=== PATIENT | female | born 2000 | race Two or more races ===

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

== ENCOUNTER 2018-07-08 17:24 | Emergency (ER) | payer MEDICAID ==
[2018-07-08 17:36] VITALS: BP 118/75
--- NOTE | 2018-07-08 17:40 | EDM.PDOC ---
<Saritha Cross - Last Filed: 07/08/18 19:32> ED HPI GENERAL MEDICAL PROBLEM - General Chief Complaint: Asthma Stated Complaint: SOB - ASTHMA Time Seen by Provider: 07/08/18 17:33 - History of Present Illness INITIAL COMMENTS - FREE TEXT/NARRATIVE: 18 y/o female presents to ER with cc SOB. Patient reports she is asthmatic and became SOB yesterday. She reports she normally uses a rescue inhaler but is out. She does not have a PCP. She denies fever, chills or productive cough. Onset Date: 07/07/18 Onset Time: 12:00 Duration: Getting Worse Severity: Mild Improves with: Reports: None Worsens with: Reports: None Associated Symptoms: Reports: Other (sob). Denies: Cough - Related Data Allergies Allergy/AdvReac Type Severity Reaction Status Date / Time No Known Allergies Allergy Verified 03/12/17 01:37 Home Meds: Home Meds Albuterol [Proventil Neb Soln] 2.5 mg .XX Q3HR PRN #60 neb 07/08/18 [Rx] Albuterol [Ventolin HFA] 2 puff INH Q3H PRN #1 mdi 07/08/18 [Rx] Albuterol/Ipratropium [DuoNeb 3.0-0.5 MG/3 ML] 3 ml .XX QID #60 neb 07/08/18 [Rx ] predniSONE [Deltasone] 20 mg PO ASDIRECTED #18 tablet 07/08/18 [Rx] ED ROS GENERAL - Review of Systems Review Of Systems: See Below Constitutional: Denies: Fever, Chills HEENT: Reports: No Symptoms Respiratory: Reports: Shortness of Breath, Wheezing Cardiovascular: Reports: No Symptoms Endocrine: Reports: No Symptoms GI/Abdominal: Reports: No Symptoms : Reports: No Symptoms Musculoskeletal: Reports: No Symptoms Skin: Reports: No Symptoms Neurological: Reports: No Symptoms Psychiatric: Reports: No Symptoms Hematologic/Lymphatic: Reports: No Symptoms Immunologic: Reports: No Symptoms ED EXAM, GENERAL - Physical Exam Exam: See Below Exam Limited By: No Limitations General Appearance: Alert, WD/WN, No Apparent Distress Neck: Normal Inspection, Supple, Non-Tender, Full Range of Motion Respiratory/Chest: Wheezing Cardiovascular: Normal Peripheral Pulses, Regular Rate, Rhythm, No Edema, No Gallop, No JVD, No Murmur, No Rub Extremities: Normal Inspection, Normal Range of Motion, Non-Tender, No Pedal Edema, Normal Capillary Refill Neurological: Alert, Oriented, Normal Cognition, Normal Gait, Normal Reflexes, No Motor/Sensory Deficits Psychiatric: Normal Affect, Normal Mood Skin Exam: Warm, Dry, Intact, Normal Color, No Rash Lymphatic: No Adenopathy Course - Vital Signs Last Recorded V/S: Last Vital Signs Temp 36.2 C 07/08/18 17:34 Pulse 109 H 07/08/18 17:34 Resp 28 H 07/08/18 17:34 BP 118/75 07/08/18 17:34 Pulse Ox 97 07/08/18 19:39 - Orders/Labs/Meds Orders: Active Orders 24 hr Category Date Time Status RT Aerosol Therapy [RC] ASDIRECTED Care 07/08/18 17:41 Active RT Aerosol Therapy [RC] ASDIRECTED Care 07/08/18 19:36 Active Albuterol/Ipratropium [DuoNeb 3.0-0.5 MG/3 ML] Med 07/08/18 17:40 Active 3 ml NEB BIDRT PRN Medication Orders Albuterol/Ipratropium (Duoneb 3.0-0.5 Mg/3 Ml) 3 ml NEB BIDRT PRN PRN Reason: sob Last Admin: 07/08/18 19:37 Dose: 3 ml Admin: 07/08/18 19:02 Dose: 3 ml Admin: 07/08/18 17:45 Dose: 3 ml Meds: Medications Generic Name Dose Route Start Last Admin Trade Name Freq PRN Reason Stop Dose Admin Albuterol/Ipratropium 3 ml 07/08/18 17:40 07/08/18 19:37 Duoneb 3.0-0.5 Mg/3 Ml NEB 3 ml BIDRT PRN Administration sob Discontinued Medications Generic Name Dose Route Start Last Admin Trade Name Freq PRN Reason Stop Dose Admin Albuterol/Ipratropium 3 ml 07/08/18 19:36 07/08/18 19:38 Duoneb 3.0-0.5 Mg/3 Ml NEB 07/08/18 19:37 Not Given ONETIME ONE Dexamethasone 4 mg 07/08/18 18:28 07/08/18 19:04 Dexamethasone IM 07/08/18 18:29 4 mg ONETIME ONE Administration - Re-Assessments/Exams Free Text/Narrative Re-Assessment/Exam: 07/08/18 19:32 She continues to wheeze despite 3 nebulizer treatments and a Decadron injection. I will discharge home with a nebulizer and nebulizer treatment. I instructed her to follow up with her PCP. Instructed to return to the ER for any new or acute worsening symptoms. Patient verbalized understanding and is comfortable with plan for discharge. She is stable at time of discharge. Departure - Departure Disposition: Home, Self-Care 01 Condition: Good Clinical Impression: Exacerbation of allergic asthma - Discharge Information *PRESCRIPTION DRUG MONITORING PROGRAM REVIEWED*: Not Applicable *COPY OF PRESCRIPTION DRUG MONITORING REPORT IN PATIENT ABRAHAN: Not Applicable Prescriptions: Albuterol [Proventil Neb Soln] 2.5 mg .XX Q3HR PRN #60 neb PRN Reason: relief of asthma Albuterol [Ventolin HFA] 2 puff INH Q3H PRN #1 mdi PRN Reason: asthma Albuterol/Ipratropium [DuoNeb 3.0-0.5 MG/3 ML] 3 ml .XX QID #60 neb predniSONE [Deltasone] 20 mg PO ASDIRECTED #18 tablet Instructions: Asthma, Adult, Form - Asthma Action Plan, Adult Referrals: PCP,None [Primary Care Provider] - Forms: ED Department Discharge Additional Instructions: Evaluation the emergency room today in regards to acute exacerbation of her asthma over the last 3-4 days. Asthma so bad that she could not sleep all night last night. Likely being exacerbated by recent adoption of a kitten into your home. Cat dander is very famous for exacerbating asthma. You were treated with DuoNeb 3 while in the emergency department to open up your lung tubes to help you breathe. He also received initial dose of steroid dexamethasone 4 mg intramuscularly. Treatment at home is to be DuoNeb medication 4 times daily usually about every 6 hours as needed for relief of wheezing and/or shortness of breath. Medication is to be used with a nebulizer machine which we obtained from [email or web address] for you. You can use albuterol neb you'll in between the DuoNeb nebulizer if needed for shortness of breath and/or wheezing. This is considered a rescue medication when you find you're really short of breath. Secondly you will be placed on his course of prednisone 20 mg twice daily with breakfast and supper for 6 days and then 1 tablet in the morning only for another 6 days to bring her asthma under control. You need to follow-up with her personal care physician in 10 days' time to make sure your asthma is well controlled. If not she may well needed an inhaled steroid to bring her asthma under control long- term. You can continue to use albuterol hand-held nebulizer that you can take with you of course when you're away from home in case her asthma acts up. - My Orders Last 24 Hours: My Active Orders 07/08/18 19:36 RT Aerosol Therapy [RC] ASDIRECTED - Assessment/Plan Last 24 Hours: My Active Orders 07/08/18 19:36 RT Aerosol Therapy [RC] ASDIRECTED <Eladio Chester - Last Filed: 07/08/18 21:31> ED HPI GENERAL MEDICAL PROBLEM - General Source of Information: Reports: Patient History Limitations: Reports: No Limitations Chest Pain Score (Numeric/FACES): 8 Past Medical History - Past Health History Medical/Surgical History: Denies Medical/Surgical History Respiratory History: Reports: Asthma - Past Surgical History Musculoskeletal Surgical History: Reports: Other (See Below) Other Musculoskeletal Surgeries/Procedures:: "knee surgery" Social & Family History - Tobacco Use Smoking Status *Q: Never Smoker - Caffeine Use Caffeine Use: Reports: Other Other Caffeine Use: power aide - Recreational Drug Use Recreational Drug Use: No Course - Orders/Labs/Meds Orders: Active Orders 24 hr Category Date Time Status RT Aerosol Therapy [RC] ASDIRECTED Care 07/08/18 17:41 Active RT Aerosol Therapy [RC] ASDIRECTED Care 07/08/18 19:36 Active Albuterol/Ipratropium [DuoNeb 3.0-0.5 MG/3 ML] Med 07/08/18 17:40 Active 3 ml NEB BIDRT PRN Medication Orders Albuterol/Ipratropium (Duoneb 3.0-0.5 Mg/3 Ml) 3 ml NEB BIDRT PRN PRN Reason: sob Last Admin: 07/08/18 19:37 Dose: 3 ml Admin: 07/08/18 19:02 Dose: 3 ml Admin: 07/08/18 17:45 Dose: 3 ml Meds: Medications Generic Name Dose Route Start Last Admin Trade Name Freq PRN Reason Stop Dose Admin Albuterol/Ipratropium 3 ml 07/08/18 17:40 07/08/18 19:37 Duoneb 3.0-0.5 Mg/3 Ml NEB 3 ml BIDRT PRN Administration sob Discontinued Medications Generic Name Dose Route Start Last Admin Trade Name Navid PRN Reason Stop Dose Admin Albuterol/Ipratropium 3 ml 07/08/18 19:36 07/08/18 19:38 Duoneb 3.0-0.5 Mg/3 Ml NEB 07/08/18 19:37 Not Given ONETIME ONE Dexamethasone 4 mg 07/08/18 18:28 07/08/18 19:04 Dexamethasone IM 07/08/18 18:29 4 mg ONETIME ONE Administration - Radiology Interpretation Free Text/Narrative:: 18-year-old female presents to the ED with an acute exacerbation of her asthma over the last 3-5 days. It's been particularly bad the last 2 days to the point that she could not sleep because she cannot lay down because she short of breath. She has a minimal cough. No fever or chills. She states she's been diagnosed with a history of asthma and had an inhaler when she was in [place]. Since moving here she really hasn't had any problems. However history suggests that they have a new kitten in the house over the last 10 days and since the cat is coming to the house she has noticed her asthma has gradually worsened. Examination reveals bilateral expiratory wheezing that is quite severe. Respiratory rate of 20-32/m with O2 sats of 95% on room air. She was seen by me and by nurse practitioner Saritha Cross. Should be treated with DuoNeb every half-hour 3 doses to alleviate some of her acute symptoms and dexamethasone 4 mg IM. - Re-Assessments/Exams Free Text/Narrative Re-Assessment/Exam: Reexamination after 3 treatments of DuoNeb reveals that she has improved airway flow but still wheezing significantly from both lung bases. made to get a home nebulizer for her and respiratory therapist provided this for her through [email or web address] program. Prescription written for DuoNeb to be taken one ampule every 6 hours for the next 10 days and then as needed. Also prescription for albuterol nebs to be taken 3 hours in between the DuoNeb nebs if needed for shortness of breath. Patient will also be placed on prednisone 20 mg twice daily for 6 days and then once daily in the morning for another 6 days to clear up inflammation. Also prescription written for albuterol metered-dose inhaler to be used 2 puffs every 3 hours when she is not at home. Plan is to have her follow-up with her personal care physician in 10 days' time to assess need for further treatment such as inhaled corticosteroid. She was instructed that she must find another home for her kitten. Her asthma actually could be life- threatening. Departure - Departure Time of Disposition: 20:04 Condition: Fair - My Orders Last 24 Hours: My Active Orders 07/08/18 19:36 RT Aerosol Therapy [RC] ASDIRECTED - Assessment/Plan Last 24 Hours: My Active Orders 07/08/18 19:36 RT Aerosol Therapy [RC] ASDIRECTED
[2018-07-08] MEDS: Albuterol/Ipratropium 3.0-0.5 MG/3 ML Neb Soln NEB PRN ×3 (17:45→19:37)
[2018-07-08] MEDS ORDERED: Dexamethasone 4 MG/ML SDV IM ONE (18:28)
[2018-07-08] MEDS ORDERED: Albuterol/Ipratropium 3.0-0.5 MG/3 ML Neb Soln NEB ONE (19:36)
== END 2018-07-08 20:25 | disposition home or self-care (01) ==
LOC: JD.ED 17:24
DX: J45.901 Unspecified asthma with (acute) exacerbation (principal)
CPT/HCPCS: 94640; 96372; 99283; J1100; J7620-GY

== ENCOUNTER 2020-12-24 17:33 | Emergency (ER) | payer BC, OTHER ==
[2020-12-24 18:00] VITALS: BP 122/72; PULSE 122
[2020-12-24] MEDS ORDERED: Sodium Chloride 0.9% 10 ML Syringe FLUSH PRN (18:06)
--- NOTE | 2020-12-24 18:22 | EDM.PDOC ---
ED HPI GENERAL MEDICAL PROBLEM - General Chief Complaint: Respiratory Problem Stated Complaint: CHEST PAIN/SOB/COUGH Time Seen by Provider: 12/24/20 18:06 Source of Information: Reports: Patient, RN Notes Reviewed History Limitations: Reports: No Limitations - History of Present Illness INITIAL COMMENTS - FREE TEXT/NARRATIVE: Patient is a 20-year-old female who presents to the ER for the evaluation of a cough/shortness of breath, and chest pressure. 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 States that she did get the first dose of Moderna vaccine on November 29. Patient states she became ill with a cough, congestion, feelings of being feverish, and chest pressure yesterday. She tried to use her albuterol inhaler, and nebulizer, but this did not seem to be helping much at all. The patient does have asthma, and is obese. She states she just feels generally unwell. Chest Pain Score (Numeric/FACES): 8 - Related Data Allergies Allergy/AdvReac Type Severity Reaction Status Date / Time No Known Allergies Allergy Verified 12/24/20 18:00 Home Meds: Home Meds Albuterol [Proventil Neb Soln] 2.5 mg .XX Q3HR PRN #60 neb 07/08/18 [Rx] Albuterol [Ventolin HFA] 2 puff INH Q3H PRN #1 mdi 07/08/18 [Rx] Albuterol/Ipratropium [DuoNeb 3.0-0.5 MG/3 ML] 3 ml .XX QID #60 neb 07/08/18 [Rx] predniSONE [Deltasone] 20 mg PO ASDIRECTED #18 tablet 07/08/18 [Rx] methylPREDNISolone [Medrol Dose Pack] 4 mg PO ASDIRECTED #1 dospk 12/24/20 [Rx] Past Medical History - Past Health History Medical/Surgical History: Denies Medical/Surgical History Respiratory History: Reports: Asthma - Past Surgical History Musculoskeletal Surgical History: Reports: Other (See Below) Other Musculoskeletal Surgeries/Procedures:: "knee surgery" Social & Family History - Tobacco Use Tobacco Use Status *Q: Never Tobacco User - Caffeine Use Caffeine Use: Reports: None Other Caffeine Use: power aide - Recreational Drug Use Recreational Drug Use: No ED ROS GENERAL - Review of Systems Review Of Systems: Comprehensive ROS is negative, except as noted in HPI. ED EXAM, GENERAL - Physical Exam Exam: See Below Exam Limited By: No Limitations General Appearance: Alert, WD/WN, No Apparent Distress Respiratory/Chest: No Respiratory Distress, Lungs Clear, Normal Breath Sounds, No Accessory Muscle Use, Chest Non-Tender Cardiovascular: Normal Peripheral Pulses, Regular Rate, Rhythm, No Edema GI/Abdominal: Normal Bowel Sounds, Soft, Non-Tender, No Distention, No Mass Extremities: Normal Inspection, Normal Capillary Refill Neurological: Alert, Oriented, Normal Cognition, No Motor/Sensory Deficits Psychiatric: Normal Affect, Normal Mood Skin Exam: Warm, Dry, Intact, Normal Color, No Rash Course - Vital Signs Last Recorded V/S: Last Vital Signs Temp 97.5 F 12/24/20 17:54 Pulse 122 H 12/24/20 17:54 Resp 20 12/24/20 17:54 BP 122/72 12/24/20 17:54 Pulse Ox 99 12/24/20 17:54 - Orders/Labs/Meds Orders: Active Orders 24 hr Category Date Time Status Chest 1V Frontal [CR] Stat Exams 12/24/20 19:28 Taken Peripheral IV Insertion Adult [OM.PC] Routine Oth 12/24/20 18:06 Ordered Labs: Laboratory Tests 12/24/20 12/24/20 12/24/20 Range/Units 18:35 18:35 18:35 WBC 7.93 (3.98-10.04) K/mm3 RBC 4.61 (3.98-5.22) M/mm3 Hgb 14.0 (11.2-15.7) gm/dl Hct 41.2 (34.1-44.9) % MCV 89.4 (79.4-94.8) fl MCH 30.4 (25.6-32.2) pg MCHC 34.0 (32.2-35.5) g/dl RDW Std Deviation 41.2 (36.4-46.3) fL Plt Count 219 (182-369) K/mm3 MPV 11.1 (9.4-12.3) fl Neut % (Auto) 80.4 H (34.0-71.1) % Lymph % (Auto) 8.2 L (19.3-51.7) % [place] % (Auto) 9.3 (4.7-12.5) % Eos % (Auto) 1.9 (0.7-5.8) Baso % (Auto) 0.1 (0.1-1.2) % Neut # (Auto) 6.37 H (1.56-6.13) K/mm3 Lymph # (Auto) 0.65 L (1.18-3.74) K/mm3 Corson # (Auto) 0.74 H (0.24-0.36) K/mm3 Eos # (Auto) 0.15 (0.04-0.36) K/mm3 Baso # (Auto) 0.01 (0.01-0.08) K/mm3 PT 10.9 (9.7-12.0) SECONDS INR 0.98 APTT 26.6 (21.7-31.4) SECONDS Sodium (136-145) mEq/L Potassium (3.5-5.1) mEq/L Chloride (98-107) mEq/L Carbon Dioxide (21-32) mEq/L Anion Gap (5-15) BUN (7-18) mg/dL Creatinine (0.55-1.02) mg/dL Est Cr Clr Drug Dosing mL/min Estimated GFR (MDRD) (>60) mL/min BUN/Creatinine Ratio (14-18) Glucose (70-99) mg/dL Calcium (8.5-10.1) mg/dL Magnesium (1.8-2.4) mg/dL Total Bilirubin (0.2-1.0) mg/dL AST (15-37) U/L ALT (14-59) U/L Alkaline Phosphatase (46-116) U/L C-Reactive Protein 1.1 H* (<1.0) mg/dL Total Protein (6.4-8.2) g/dl Albumin (3.4-5.0) g/dl Globulin gm/dL Albumin/Globulin Ratio (1-2) SARS-CoV-2 RNA (GERDA) (NEGATIVE) 12/24/20 12/24/20 Range/Units 18:35 18:36 WBC (3.98-10.04) K/mm3 RBC (3.98-5.22) M/mm3 Hgb (11.2-15.7) gm/dl Hct (34.1-44.9) % MCV (79.4-94.8) fl MCH (25.6-32.2) pg MCHC (32.2-35.5) g/dl RDW Std Deviation (36.4-46.3) fL Plt Count (182-369) K/mm3 MPV (9.4-12.3) fl Neut % (Auto) (34.0-71.1) % Lymph % (Auto) (19.3-51.7) % [place] % (Auto) (4.7-12.5) % Eos % (Auto) (0.7-5.8) Baso % (Auto) (0.1-1.2) % Neut # (Auto) (1.56-6.13) K/mm3 Lymph # (Auto) (1.18-3.74) K/mm3 [place] # (Auto) (0.24-0.36) K/mm3 Eos # (Auto) (0.04-0.36) K/mm3 Baso # (Auto) (0.01-0.08) K/mm3 PT (9.7-12.0) SECONDS INR APTT (21.7-31.4) SECONDS Sodium 140 (136-145) mEq/L Potassium 3.2 L (3.5-5.1) mEq/L Chloride 103 (98-107) mEq/L Carbon Dioxide 26 (21-32) mEq/L Anion Gap 14.2 (5-15) BUN 7 (7-18) mg/dL Creatinine 0.7 (0.55-1.02) mg/dL Est Cr Clr Drug Dosing 90.55 mL/min Estimated GFR (MDRD) > 60 (>60) mL/min BUN/Creatinine Ratio 10.0 L (14-18) Glucose 98 (70-99) mg/dL Calcium 8.8 (8.5-10.1) mg/dL Magnesium 1.8 (1.8-2.4) mg/dL Total Bilirubin 0.3 (0.2-1.0) mg/dL AST 14 L (15-37) U/L ALT 24 (14-59) U/L Alkaline Phosphatase 68 (46-116) U/L C-Reactive Protein (<1.0) mg/dL Total Protein 8.1 (6.4-8.2) g/dl Albumin 4.3 (3.4-5.0) g/dl Globulin 3.8 gm/dL Albumin/Globulin Ratio 1.1 (1-2) SARS-CoV-2 RNA (GERDA) Negative (NEGATIVE) Meds: Medications Discontinued Medications Generic Name Dose Route Start Last Admin Trade Name Freq PRN Reason Stop Dose Admin Potassium Chloride 40 meq 12/24/20 19:27 12/24/20 19:38 Potassium Chloride 20 Meq Tab.Er PO 12/24/20 19:28 40 meq ONETIME ONE Administration Prednisone 40 mg 12/24/20 21:11 Prednisone 20 Mg Tab PO 12/24/20 21:12 ONETIME ONE Sodium Chloride 10 ml 12/24/20 18:06 12/24/20 19:18 Sodium Chloride 0.9% 10 Ml Syringe FLUSH 10 ml ASDIRECTED PRN Administration Keep Vein Open - Re-Assessments/Exams Free Text/Narrative Re-Assessment/Exam: 12/24/20 18:21 Patient presents to the ER for the evaluation of her [id number] symptoms, we will go ahead and get a Covid swab, get a chest x-ray, and some basic labs for initial evaluation. Should the patient's Covid swab turn positive, she would be a candidate for Regeneron therapy. 12/24/20 21:03 The patient's COVID-19 swab was negative for today's purposes. Chest x-ray was also unremarkable for any acute infiltrates at this time. Laboratory evaluation was also fairly unremarkable, CRP was mildly elevated at 1.1. Due to the patient only having developed symptoms recently, we will have her quarantine at home and retest in a few days time. Due to the patient's asthma I will go ahead and get her started on oral steroids for management. Departure - Departure Time of Disposition: 21:05 Disposition: Home, Self-Care 01 Condition: Good Clinical Impression: Suspected COVID-19 virus infection Asthma exacerbation Qualifiers: Asthma severity: mild Asthma persistence: intermittent Qualified Code(s): J45.21 - Mild intermittent asthma with (acute) exacerbation - Discharge Information *PRESCRIPTION DRUG MONITORING PROGRAM REVIEWED*: No *COPY OF PRESCRIPTION DRUG MONITORING REPORT IN PATIENT ABRAHAN: No Prescriptions: methylPREDNISolone [Medrol Dose Pack] 4 mg PO ASDIRECTED #1 dospk Instructions: Asthma, Adult, [id number], COVID-19: Quarantine vs. Isolation - [facility] (03/28/2020) Referrals: Jessy Dickson PA-C [Primary Care Provider] - Forms: ED Department Discharge Additional Instructions: You were evaluated in the ER today for your [id number] symptoms. Your COVID-19 test did come back negative, but sometimes these are false negatives. These Covid screens are only about 60% accurate; and it is common to test negative initially but then test positive a few days later. Due to this, we recommend that you try to isolate yourself away from others, and get retested for COVID-19 in about 3 or 4 days. There are multiple sites that can do this, there is a drive-through clinic by the [facility], there is a walk-in clinic and our Covid clinic that can help you with these. Continue all other medications as previously prescribed. You may continue to use your albuterol inhaler and nebulizer for ongoing shortness of breath. You have been given a course of steroids as well. This medication was electronically sent to [facility]. Do not hesitate to return to the ER at any time if symptoms change or worsen. Sepsis Event Note (ED) - Evaluation Sepsis Screening Result: No Definite Risk - Focused Exam Vital Signs: Vital Signs Temp Pulse Resp BP Pulse Ox 12/24/20 17:54 97.5 F 122 H 20 122/72 99 - My Orders Last 24 Hours: My Active Orders 12/24/20 18:06 Peripheral IV Insertion Adult [OM.PC] Routine 12/24/20 19:28 Chest 1V Frontal [CR] Stat - Assessment/Plan Last 24 Hours: My Active Orders 12/24/20 18:06 Peripheral IV Insertion Adult [OM.PC] Routine 12/24/20 19:28 Chest 1V Frontal [CR] Stat
[2020-12-24] MEDS ORDERED: Potassium Chloride 20 MEQ Tab.ER PO ONE (19:27)
[2020-12-24] MEDS ORDERED: predniSONE 20 MG Tab PO ONE (21:11)
--- NOTE | 2020-12-25 07:10 | CR ---
Chest: Frontal view of the chest was obtained. Comparison: Prior chest x-ray of 03/12/17. Heart size and mediastinum are within normal limits. Lungs are clear with no acute parenchymal change. Bony structures appear within normal limits for the patient's age. Impression: 1. Nothing acute is seen on frontal chest x-ray. Diagnostic code #1
== END 2020-12-24 21:55 | disposition home or self-care (01) ==
LOC: JD.ED 17:33
DX: J45.21 Mild intermittent asthma with (acute) exacerbation (principal); Z79.899 Other long term (current) drug therapy; Z20.822 Contact with and (suspected) exposure to COVID-19
CPT/HCPCS: 36415; 71045; 80053; 83735; 85025; 85610; 85730; 86140; 87635; 99285; A9270; 99283; U0002